=== PATIENT | male | born 1960 | race Caucasian/White ===

== ENCOUNTER → 2017-01-11 | Outpatient (CLI) | payer MEDICARE, BC ==
[~2017-01-11] MED LIST: LIPITOR10 MG PO; LISINOPRIL10 M1 PO; NORCO 10-325 T1 EACH PO; TOPROL XL50 M1 PO
[2017-01-11 11:12] LABS: HEMOGLOBIN 11.1 g/dl (14.0-18.0); MEAN CELL VOLUME 117.2 fl (80.0-94.0); MEAN CORPUSCULAR HGB 43.4 pg (27.0-31.0); MEAN PLATELET VOLUME 9.7 fl (9.6-12.3); PLATELET COUNT AUTOMATED 111 10*3/uL (130-400); RED BLOOD COUNT 2.56 10*6/uL (4.50-5.90); RED CELL DISTRI WIDTH 13.5 % (0-14.5); WHITE BLOOD COUNT 4.2 10*3/uL (4.8-10.8)
[2017-01-11 11:27] LABS: ALBUMIN 2.8 gm/dl (3.1-4.5); ALKALINE PHOSPHATASE 150 U/L (45-117); BILIRUBIN, TOTAL 0.6 mg/dl (0.2-1.0); BUN 7 mg/dl (7-24); CARBON DIOXIDE 25 mmol/L (21-32); CHLORIDE 100 mmol/L (98-107); EST GLOM FILT AFRICAN AMERICAN > 60 ml/min; GLUCOSE 89 mg/dL (65-99); POTASSIUM 4.2 mmol/L (3.5-5.1); SGOT/AST 24 IU/L (3-35); SGPT/ALT 13 U/L (12-78); SODIUM 132 mmol/L (136-145); TOTAL PROTEIN 6.3 gm/dL (6.4-8.2)
[2017-01-11 11:38] LABS: EOSINOPHIL # 0.1 10*3/uL (0-0.4); EOSINOPHILS 2 % (1-4); LYMPHOCYTE # 0.6 10*3/uL (1.3-4.4); MONOCYTE # 0.1 10*3/uL (0.1-1.0); NEUTROPHIL # 3.4 10*3/uL (2.3-7.9); NEUTROPHILS 81 % (47-73); TOTAL CELLS COUNTED 100 #CELLS
[2017-01-11 11:42] LABS: OVALOCYTES FEW; PLATELET SUFFICIENCY LOW (NORMAL)
[2017-01-12 05:11] LABS: TOTAL PROTEIN, SERUM 5.9 g/dL (6.0-8.5)
[2017-01-12 15:09] LABS: A/G RATIO 1.3 (0.7-1.7); ALBUMIN 3.3 g/dL (2.9-4.4); ALPHA-1-GLOBULIN 0.2 g/dL (0.0-0.4); BETA GLOBULIN 0.8 g/dL (0.7-1.3); GAMMA GLOBULIN 1.2 g/dL (0.4-1.8); GLOBULIN, TOTAL 2.6 g/dL (2.2-3.9); M-SPIKE Not Observed g/dL (Not Observed)
== END | disposition home or self-care (01) ==
LOC: LAB 10:33
PROVIDERS: Family Medicine
DX: J44.9 Chronic obstructive pulmonary disease, unspecified (principal); R63.4 Abnormal weight loss; F17.200 Nicotine dependence, unspecified, uncomplicated; I10 Essential (primary) hypertension

== ENCOUNTER → 2017-03-26 | Outpatient (CLI) | payer MEDICARE, BC ==
[2017-03-26 09:47] LABS: HEMATOCRIT 33.7 % (42.0-52.0); HEMOGLOBIN 11.8 g/dl (14.0-18.0); MEAN CELL VOLUME 118.7 fl (80.0-94.0); MEAN CORPUSCULAR HGB 41.5 pg (27.0-31.0); PLATELET COUNT AUTOMATED 240 10*3/uL (130-400); RED BLOOD COUNT 2.84 10*6/uL (4.50-5.90); RED CELL DISTRI WIDTH 11.9 % (0-14.5); WHITE BLOOD COUNT 5.1 10*3/uL (4.8-10.8)
[2017-03-26 10:10] LABS: IRON 77 ug/dL (65-175); TOTAL IRON BINDING CAPACITY 268 ug/dl (250-450)
[2017-03-26 10:43] LABS: PLATELET SUFFICIENCY NORMAL (NORMAL); TOTAL CELLS COUNTED 100 #CELLS
[2017-03-26 11:01] LABS: FERRITIN 351.3 ng/mL (22.0-322.0)
[2017-03-27 19:09] LABS: HLA CLASS 1 ANTIBODY Negative (Negative); IIb/IIIa ANTIBODY Negative (Negative); Ia/IIa ANTIBODY Negative (Negative); Ib/IX ANTIBODY Negative (Negative)
[2017-03-28 19:04] LABS: PLT ASSOCIATED ANTI-la/lla Positive (Negative); PLT ASSOCIATED ANTI-llb/llla Positive (Negative)
== END | disposition home or self-care (01) ==
LOC: LAB 09:13
PROVIDERS: Internal Medicine Hematology & Oncology
DX: D61.818 Other pancytopenia (principal); D75.9 Disease of blood and blood-forming organs, unspecified; D64.9 Anemia, unspecified; D69.59 Other secondary thrombocytopenia

== ENCOUNTER → 2018-11-24 | Outpatient (CLI) | payer MEDICARE, BC ==
[2018-11-24 16:35] LABS: HEMATOCRIT 34.8 % (42.0-52.0); MEAN CELL VOLUME 108.4 fl (80.0-94.0); MEAN CORPUSCULAR HGB 37.4 pg (27.0-31.0); MEAN CORPUSCULAR HGB CONC 34.5 g/dl (33.0-37.0); MEAN PLATELET VOLUME 10.2 fl (9.6-12.3); PLATELET COUNT AUTOMATED 154 10*3/uL (130-400); RED BLOOD COUNT 3.21 10*6/uL (4.50-5.90); WHITE BLOOD COUNT 5.1 10*3/uL (4.8-10.8)
[2018-11-24 17:01] LABS: ALBUMIN 3.1 gm/dl (3.1-4.5); ALKALINE PHOSPHATASE 180 U/L (45-117); BUN 15 mg/dl (7-24); CHLORIDE 101 mmol/L (98-107); CREATININE 0.95 mg/dL (0.70-1.30); POTASSIUM 4.7 mmol/L (3.5-5.1); SGOT/AST 96 IU/L (3-35); SGPT/ALT 65 U/L (12-78); SODIUM 132 mmol/L (136-145); TOTAL PROTEIN 6.7 gm/dL (6.4-8.2)
[2018-11-24 17:08] LABS: BASOPHILS 2 % (0-1); PLATELET SUFFICIENCY NORMAL (NORMAL); TOTAL CELLS COUNTED 100 #CELLS
[2018-11-25 06:10] LABS: HEP B CORE AB TOTAL 006718 Negative (Negative)
[2018-11-25 08:08] LABS: IMMUNOGLOBULIN G, QNT 1111 mg/dL (700-1600); IMMUNOGLOBULIN M, QNT 139 mg/dL (20-172); RHEUMATOID ARTHRITIS FACTOR 41.7 IU/mL (0.0-13.9)
[2018-11-25 13:05] LABS: SJOGREN ANTI-SS-A <0.2 AI (0.0-0.9); SJOREN AB, ANTI-SS-B <0.2 AI (0.0-0.9)
[2018-11-26 21:08] LABS: HCV RT-PCR RFX 795000 IU/mL (.)
[2018-11-28 00:03] LABS: TB1 Ag VALUE 0.06 IU/mL (.)
[2018-11-28 15:07] LABS: ALBUMIN, URINE 8.1 % (.); ALPHA-1-GLOBULIN, URINE 3.1 % (.); ALPHA-2-GLOBULIN, URINE 12.1 % (.); BETA GLOBULIN, URINE 44.6 % (.); GAMMA GLOBULIN, URINE 32.2 % (.); M-SPIKE, % Not Observed % (Not Observed); PROTEIN,TOTAL - URINE RANDOM 10.1 mg/dL (Not Estab.)
[2018-11-29 00:03] LABS: CCP ANTIBODIES IGG/IGA 6 units (0-19)
[2018-11-29 12:07] LABS: HLA-B27 ANTIGEN Negative (.)
== END | disposition home or self-care (01) ==
LOC: LAB 15:41
PROVIDERS: Internal Medicine
DX: M19.042 Primary osteoarthritis, left hand (principal); M19.041 Primary osteoarthritis, right hand; I10 Essential (primary) hypertension; D64.9 Anemia, unspecified; R25.2 Cramp and spasm; R63.4 Abnormal weight loss

== ENCOUNTER → 2019-02-27 | Outpatient (CLI) | payer MEDICARE, BC | END | disposition home or self-care (01) | LOC: RAD 13:59 | DX: M95.0 Acquired deformity of nose (principal) ==

== ENCOUNTER → 2019-03-20 | Outpatient (CLI) | payer MEDICARE, BC | END | disposition home or self-care (01) | LOC: CT 09:45 | DX: J43.9 Emphysema, unspecified (principal); R91.8 Other nonspecific abnormal finding of lung field; R91.1 Solitary pulmonary nodule ==

== ENCOUNTER 2020-01-01 17:03 | Inpatient (IN) | payer MEDICARE, BC ==
[~2020-01-01] VITALS: Ht 187.9 cm; Wt 79.4 kg
[2020-01-01 17:17] VITALS: BP 115/72
[2020-01-01 17:53] LABS: BASO # 0.1 10*3/uL (0.0-0.1); BASO % 0.7 % (0.0-1.0); EOS % 0.4 % (1.0-4.0); HEMATOCRIT 34.6 % (42.0-52.0); LYMPH # 0.6 10*3/uL (1.3-4.4); LYMPH % 8.8 % (27.0-41.0); MEAN CELL VOLUME 106.5 fl (80.0-94.0); MEAN CORPUSCULAR HGB 34.8 pg (27.0-31.0); MEAN CORPUSCULAR HGB CONC 32.7 g/dl (33.0-37.0); MEAN PLATELET VOLUME 10.7 fl (9.6-12.3); MONO # 0.8 10*3/uL (0.1-1.0); NEUT # 5.5 10*3/uL (2.3-7.9); PLATELET COUNT AUTOMATED 205 10*3/uL (130-400); RED BLOOD COUNT 3.25 10*6/uL (4.50-5.90); RED CELL DISTRI WIDTH 13.5 % (0-14.5)
[2020-01-01 18:04] LABS: ACT PARTIAL THROMBO TIME 23.3 SECONDS (20.0-32.1)
[2020-01-01 18:08] LABS: ALBUMIN 2.8 gm/dl (3.1-4.5); ALKALINE PHOSPHATASE 175 U/L (45-117); BUN 11 mg/dl (7-24); CHLORIDE 105 mmol/L (98-107); CREATININE 1.24 mg/dL (0.70-1.30); POTASSIUM 4.3 mmol/L (3.5-5.1); SGOT/AST 31 IU/L (3-35); SGPT/ALT 38 U/L (12-78); SODIUM 137 mmol/L (136-145); TOTAL PROTEIN 6.9 gm/dL (6.4-8.2)
[2020-01-01 18:09] LABS: TROPONIN I 0.044 ng/ml (<0.045)
[2020-01-01 19:21] VITALS: BP 118/79
--- NOTE | 2020-01-01 19:45 | NUR ---
SPOKE WITH KELLY ON FLOOR TO SEE IF SHE WAS READY FOR PATIENT, PER KELLY ALAN IS NOW TAKING PATIENT AND NEEDS 10 MORE MINUTES BEFORE BRINGING PATIENT UP.
[2020-01-01 19:46] VITALS: BP 106/83
--- NOTE | 2020-01-01 20:00 | NUR ---
PATIENT DENIES ANY OPEN WOUNDS AT THIS TIME. SCATTERED HEALING SCABS NOTED TO LEFT LOWER EXTREMITY.
[2020-01-01 20:20] VITALS: BP 111/86
--- NOTE | 2020-01-01 20:20 | NUR ---
A 59, admitted to , under the services of SALVADOR Calderón DO with a diagnosis of LEG EDEMA, ANEMIA, CHF, AFIB. Chief complaint is SOB. Patient arrived via bed from ER. Monitor applied. Initial assessment completed. Vital signs taken and recorded. SALVADOR CALDERÓN DO notified of admission to the unit. Orders received. See assessment for past medical history, medications and allergies. Patient and/or family oriented to unit. [facility] visitation policy reviewed. Clothing/patient valuable form completed. WAQAS CHAN
[2020-01-01] MEDS ORDERED: NORVASC5 MG PO (20:42)
[2020-01-01] MEDS ORDERED: PROAIR HFA8.5 GM INH (20:46)
--- NOTE | 2020-01-01 21:03 | NUR ---
DR. STOLL NOTIFIED OF CRITICAL LACTIC ACID OF 2.2. ALSO NOTIFIED OF COMPLETE HOME MEDICATIONS. NO NEW ORDERS AT THIS TIME.
[2020-01-01 22:00] VITALS: BP 130/84
--- NOTE | 2020-01-01 22:15 | NUR ---
DR. MANZO NOTIFIED OF CONSULT, ORDER FOR CTA RECEIVED.
--- NOTE | 2020-01-01 22:26 | NUR ---
DR. MARIA NOTIFIED OF CONSULT. STATED TO KEEP PT ON CARDIZEM DRIP OVERNIGHT, UNLESS CONVERTS TO SINUS RHYTHM. WILL SEE PT IN THE AM.
[2020-01-02] VITALS (11 sets, daily range): BP systolic 117–136; BP diastolic 54–97
--- NOTE | 2020-01-02 00:30 | NUR ---
PT READING BOOK AT THIS TIME. VOICES NO COMPLAINTS. BOTH IV'S INFUSING WITHOUT DIFFICULTY. CALL LIGHT IN REACH
--- NOTE | 2020-01-02 02:30 | NUR ---
PT LYING IN BED RESTING AT THIS TIME. CALL LIGHT IN REACH
--- NOTE | 2020-01-02 03:46 | NUR ---
PT HAS CHRONIC TREMORS, BUT STATES HE FEELS RESTLESS AT THIS TIME WITH GENERALIZED ACHES ALL OVER. PO ROBAXIN GIVEN PER PRN ORDER FOR MUSCLE ACHES. WILL MONITOR EFFECTIVENESS. CALL LIGHT IN REACH.
--- NOTE | 2020-01-02 04:46 | NUR ---
ROBAXIN APPEARS EFFECTIVE. PT RESTING COMFORTABLY.
[2020-01-02 06:42] LABS: HEMATOCRIT 34.5 % (42.0-52.0); MEAN CELL VOLUME 109.2 fl (80.0-94.0); MEAN CORPUSCULAR HGB 35.4 pg (27.0-31.0); MEAN CORPUSCULAR HGB CONC 32.5 g/dl (33.0-37.0); MEAN PLATELET VOLUME 11.3 fl (9.6-12.3); PLATELET COUNT AUTOMATED 176 10*3/uL (130-400); RED BLOOD COUNT 3.16 10*6/uL (4.50-5.90); RED CELL DISTRI WIDTH 14.1 % (0-14.5); WHITE BLOOD COUNT 4.4 10*3/uL (4.8-10.8)
[2020-01-02 07:16] LABS: ALBUMIN 2.9 gm/dl (3.1-4.5); ALKALINE PHOSPHATASE 158 U/L (45-117); BUN 19 mg/dl (7-24); CHLORIDE 106 mmol/L (98-107); CHOLESTEROL 185 mg/dL (<200); HDL CHOLESTEROL 107 mg/dl (40-60); LDL CHOLESTEROL 69 mg/dL (9-159); POTASSIUM 4.7 mmol/L (3.5-5.1); SGOT/AST 26 IU/L (3-35); SGPT/ALT 36 U/L (12-78); SODIUM 136 mmol/L (136-145); TOTAL PROTEIN 6.8 gm/dL (6.4-8.2); TRIGLYCERIDES 44 mg/dl (<150); VLDL CHOLESTEROL 9 mg/dL (6-40)
[2020-01-02 07:40] LABS: PLATELET SUFFICIENCY NORMAL (NORMAL); ROULEAUX SLIGHT; TOTAL CELLS COUNTED 100 #CELLS
[2020-01-02 07:43] LABS: THYROID STIM HORMONE (HS) 0.703 uIU/ml (0.358-4.75)
--- NOTE | 2020-01-02 08:36 | NUR ---
SPEECH PATHOLOGY Clinical swallowing evaluation completed as per orders to assess for aspiration. Patient was admitted with increased SOB, new onset of A-fib RVR. Further history includes COPD, HTN, hx of amputation, ETOH abuse. Recent CXR showed acute bronchopneumonia in right lower lobe with pleural effusion. He is ordered a regular diet and thin liquid. He was seen this am during breakfast meal. Patient was alert, oriented and denied any chewing or swallowing problems. He was sitting upright in bed feeding himself. Patient displayed good intake and consumed a variety of solid foods and liquids. He displayed no overt oral or pharyngeal difficulty. There were no s/s aspiration with meal. Recommend patient remain on present diet with safe swallow precautions including upright positioning with meals, small bites/sips and taking breaks when needed if SOB. Patient was educated on results and chad. and verbalized understanding. No follow up treatment is warranted at this time. Refer to report in [employer] for further information. Thank you for this referral. ORLANDO MULTANI MSCCC-PIER MASTER
--- NOTE | 2020-01-02 09:00 | NUR ---
Trust Clerk in to talk to patient. Patient states lives at home with alone. There are no steps in the home. Physician: janae Pharmacy: mail Home health services: none Patient's level of ADLs: INDEPENDENT Patient has working utilities: all working DME: home oxygen, portable tanks from [facility] patient Follow-up physician's appointment after d/c: will be made by hospitalist nurse director upon discharge Does patient want to access PORTAL?: no Discharge plan discussed with patient, he states he lives at home alone, he is independent in adls, has a prosthetic right leg and is independent in ambulation, he states he received home oxygen last Wednesday and wears it at 2l/min, he stated he would be returning home upon discharge. discussed with him [facility] and educated him on the services they provide, he declined any home services at this time, case management will follow. ALTAGRACIA BRITT
[2020-01-02 17:07] LABS: ABG BASE EXCESS -3.3 mmol/L (-2.0-2.0); ARTERIAL BLOOD GAS PH 7.447 (7.35-7.45)
--- NOTE | 2020-01-02 19:30 | NUR ---
REPOST OBTAINED. PATIENT CURRENTLY HAS CARDIZEM GTT RUNNING AT 5CC/HR, HR AFIB 90-110'S. CALL LIGHT WITHIN REACH
--- NOTE | 2020-01-02 21:41 | NUR ---
PATIENT MEDICATED WITH ROBAXIN FOR C/O MUSCLE ACHES. WILL MONITOR
[2020-01-03] VITALS (7 sets, daily range): BP systolic 116–136; BP diastolic 78–99
--- NOTE | 2020-01-03 | NUR ---
CARDIZEM GTT FLOWING AT 5CC/HR. HEART MAINTAINS AFIB 90-100'S PER CM.
--- NOTE | 2020-01-03 02:49 | NUR ---
HR AFIB 80-90'S DIPPING INTO 70'S. CARDIZEM GTT DECREASED TO 2.5CC/HR. WILL MONITOR
--- NOTE | 2020-01-03 04:50 | NUR ---
CARDIZEM GTT INCREASED TO 5CC/HR. HR AFIB 90-110'S. BLOOD PRESSURE MAINTAINING AT 116/88 MANUAL
[2020-01-03 06:54] LABS: HEMATOCRIT 31.5 % (42.0-52.0); LYMPH # 0.2 10*3/uL (1.3-4.4); LYMPH % 3.9 % (27.0-41.0); MEAN CELL VOLUME 107.9 fl (80.0-94.0); MEAN CORPUSCULAR HGB 35.6 pg (27.0-31.0); MEAN PLATELET VOLUME 11.1 fl (9.6-12.3); MONO # 0.4 10*3/uL (0.1-1.0); MONO % 8.4 % (3.0-9.0); NEUT # 4.5 10*3/uL (2.3-7.9); NEUT % 87.3 % (47.0-73.0); PLATELET COUNT AUTOMATED 159 10*3/uL (130-400); RED BLOOD COUNT 2.92 10*6/uL (4.50-5.90); WHITE BLOOD COUNT 5.1 10*3/uL (4.8-10.8)
[2020-01-03 07:11] LABS: ALBUMIN 2.8 gm/dl (3.1-4.5); ALKALINE PHOSPHATASE 142 U/L (45-117); BUN 28 mg/dl (7-24); CHLORIDE 104 mmol/L (98-107); CREATININE 1.17 mg/dL (0.70-1.30); POTASSIUM 3.9 mmol/L (3.5-5.1); SGOT/AST 18 IU/L (3-35); SGPT/ALT 31 U/L (12-78); SODIUM 135 mmol/L (136-145); TOTAL PROTEIN 6.5 gm/dL (6.4-8.2)
--- NOTE | 2020-01-03 09:00 | NUR ---
case management visits with patient, he stated he will be transferred to [facility] for lung surgery, case management will follow for any needs
--- NOTE | 2020-01-03 09:30 | NUR ---
SPOKE WITH DR MANZO PER DR HDEZ'S REQUEST . PER DR MANZO PT TO BE TRANSFERRED TO [facility] FOR VAPS PROCEDURE. NOTIFIED DR HDEZ, AWAITING ORDERS.CARDIOLOGY AWARE, DR PHIPPS ROUNDED AND STATED THAT PT TO BE TRANSPORTED WITH [facility] GTT.
--- NOTE | 2020-01-03 09:55 | NUR ---
OT NOTE Occupational therapy order received and OT evaluation attempted. Spoke with nursing prior to entering room. Patient seated EOB with nursing in room awaiting a transfer to another facility for a VAPS procedue. Patient on a cardizem drip and is not appropriate for an OT evaluation at this time due to increased HR per nurse. No further OT indicated at this time. Thank you. Sendy Camarena, OTR/L
--- NOTE | 2020-01-03 10:04 | NUR ---
PT GIVEN ROBAXIN 750MG FOR C/O MUSCLE ACHES.
--- NOTE | 2020-01-03 10:05 | NUR ---
NORCO 10/325 GIVEN TO PATIENT FOR 10/10 PAIN ALL OVER.
--- NOTE | 2020-01-03 10:08 | NUR ---
PHYSICAL THERAPY Physical therapy evalution attempted. Spoke with nursing. Patient sitting EOB awaiting to be transferred to another facility for VAPS procedure. Patient on Cardizem drip and not appropriate for PT services at this time due to increased HR with activity. Discharge PT orders due to transferring to another facility. Thank you. Ashlee Zhang,PT,DPT
[2020-01-03] MEDS ORDERED: METOPROLOL SUCC50 M1 PO (12:27)
--- NOTE | 2020-01-03 13:45 | NUR ---
REPORT CALLED TO NICHOL RAYO AT [facility].
--- NOTE | 2020-01-03 13:55 | NUR ---
Discharge instructions reviewed with patient/family. Patient receptive and verbalizes understanding. Follow-up care arranged. Written instructions given to patient/family. JESSE BENJAMIN
--- NOTE | 2020-01-04 20:56 | NUR ---
NOTIFIED DR. STOLL OF PATIENTS POSITIVE BLOOD CULTURES AND THAT HE WAS TRANSFERRED TO [facility] YESTERDAY. DR. STOLL STATED TO NOTIFY [facility] OF POSITIVE RESULTS AND IF THE PATIENT WAS DISCHARGED THEN WE WILL GET A HOLD OF THE PATIENT
--- NOTE | 2020-01-04 21:35 | NUR ---
SPOKE WITH THE NURSING CARDIAC CATHETERIZATION TECHNICIAN AT [facility] WHO STATED THAT THE PATIENT WAS STILL THERE ON THE 6TH FLOOR. WAS TRANSFERRED TO THE 6TH FLOOR AND SPOKE WITH CARMEN AND WOULD LIKE A COPY OF PATIENTS RESULTS FOR CHART. FAX NUMBER [phone]
--- NOTE | 2020-01-04 21:45 | NUR ---
CALLED BACK TO [facility] FOR REQUEST OF HYDROTHERAPIST TO OBTAIN A RELEASE OF RECORDS FROM [facility] SO WE CAN SEND THE RESULTS TO THEM.
== END 2020-01-03 13:55 | disposition short-term general hospital (02) | DRG 177 ==
LOC: ED 17:03 → 5E 18:39 → EDHOLD 18:39 → 5E 18:39
PROVIDERS: Emergency Medicine; Internal Medicine Critical Care Medicine; Student in an Organized Health Care Education/Training Program; ADMIT Internal Medicine
DX: J69.0 Pneumonitis due to inhalation of food and vomit (principal); J96.21 Acute and chronic respiratory failure with hypoxia; E87.2 Acidosis; E44.0 Moderate protein-calorie malnutrition; I48.91 Unspecified atrial fibrillation; R60.0 Localized edema; R00.0 Tachycardia, unspecified; E78.5 Hyperlipidemia, unspecified; J43.9 Emphysema, unspecified; M19.90 Unspecified osteoarthritis, unspecified site; I50.9 Heart failure, unspecified; D53.9 Nutritional anemia, unspecified; I11.0 Hypertensive heart disease with heart failure; F10.129 Alcohol abuse with intoxication, unspecified; Z82.49 Family history of ischemic heart disease and other diseases of the circulatory system; Z89.511 Acquired absence of right leg below knee; Z82.0 Family history of epilepsy and other diseases of the nervous system; Z79.899 Other long term (current) drug therapy; Z87.891 Personal history of nicotine dependence; Z68.22 Body mass index [BMI] 22.0-22.9, adult

== ENCOUNTER 2021-04-02 16:25 | Inpatient (IN) | payer MEDICARE, BC ==
[~2021-04-02] VITALS: Ht 188 cm; Wt 73.1 kg
[2021-04-02] VITALS (8 sets, daily range): BP systolic 117–146; BP diastolic 56–98
[~2021-04-02 16:25] MED LIST changes: +METOPROLOL SUCC50 M1 PO; +NORVASC5 MG PO; +PROAIR HFA8.5 GM INH
[2021-04-02 16:59] LABS: HEMATOCRIT 40.5 % (42.0-52.0); MEAN CELL VOLUME 116.4 fl (80.0-94.0); MEAN CORPUSCULAR HGB 39.1 pg (27.0-31.0); MEAN CORPUSCULAR HGB CONC 33.6 g/dl (33.0-37.0); MEAN PLATELET VOLUME 10.3 fl (9.6-12.3); PLATELET COUNT AUTOMATED 247 10*3/uL (130-400); RED BLOOD COUNT 3.48 10*6/uL (4.50-5.90); RED CELL DISTRI WIDTH 13.3 % (0-14.5); WHITE BLOOD COUNT 8.4 10*3/uL (4.8-10.8)
[2021-04-02 17:09] LABS: ACT PARTIAL THROMBO TIME 29.3 SECONDS (20.0-32.1)
[2021-04-02 17:17] LABS: ALBUMIN 2.7 gm/dl (3.1-4.5); ALKALINE PHOSPHATASE 169 U/L (45-117); BUN 32 mg/dl (7-24); CHLORIDE 104 mmol/L (98-107); CREATININE 1.16 mg/dL (0.70-1.30); POTASSIUM 4.7 mmol/L (3.5-5.1); SGOT/AST 25 IU/L (3-35); SGPT/ALT 24 U/L (12-78); SODIUM 135 mmol/L (136-145); TOTAL PROTEIN 8.1 gm/dL (6.4-8.2); TROPONIN I 0.021 ng/ml (<0.045)
[2021-04-02 17:36] LABS: ATYPICAL LYMPHS 5 % (0-0); TOTAL CELLS COUNTED 100 #CELLS
[2021-04-02 17:37] LABS: PLATELET SUFFICIENCY NORMAL (NORMAL)
[2021-04-02] MEDS ORDERED: TEMAZEPAM30 MG PO (18:39)
[2021-04-02] MEDS ORDERED: LISINOPRIL10 M1 PO (18:39)
[2021-04-02] MEDS ORDERED: METOPROLOL TART50 M1 PO (18:42)
[2021-04-02 20:59] LABS: BILIRUBIN Negative (Negative); BLOOD Negative (Negative); CLARITY Clear (Clear); COLOR Yellow (Yellow); GLUCOSE Negative (Negative); KETONE Trace (Negative); LEUKO ESTERASE Negative (Negative); NITRITE Negative (Negative)
[2021-04-02 21:07] LABS: URINE AMPHETAMINES > 1000 (1000ng/ml); URINE BARBITURATES < 200 (200ng/ml); URINE BENZODIAZEPINES < 200 (200ng/ml); URINE CANNABINOIDS (THC) > 50 (50ng/ml); URINE COCAINE < 300 (300ng/ml); URINE METHADONE < 300 (300ng/ml); URINE OPIATES > 300 (300ng/ml); URINE PHENCYCLIDINE < 25 (25ng/ml)
[2021-04-02 21:12] LABS: BACTERIA TRACE; EPITHELIAL CELLS 0-2; MUCOUS TRACE; RBC 0-2 rbc/hpf (0-2); WBC 0-2 wbc/hpf (0-5)
[2021-04-03] VITALS: BP 101/77; BP 106/48
[2021-04-03 06:34] LABS: HEMATOCRIT 34.7 % (42.0-52.0); MEAN CELL VOLUME 116.4 fl (80.0-94.0); MEAN CORPUSCULAR HGB 39.3 pg (27.0-31.0); MEAN CORPUSCULAR HGB CONC 33.7 g/dl (33.0-37.0); MEAN PLATELET VOLUME 11.3 fl (9.6-12.3); PLATELET COUNT AUTOMATED 213 10*3/uL (130-400); RED BLOOD COUNT 2.98 10*6/uL (4.50-5.90); RED CELL DISTRI WIDTH 13.3 % (0-14.5); WHITE BLOOD COUNT 5.5 10*3/uL (4.8-10.8)
[2021-04-03 06:42] LABS: ALBUMIN 2.1 gm/dl (3.1-4.5); BUN 26 mg/dl (7-24); CHLORIDE 108 mmol/L (98-107); CHOLESTEROL 127 mg/dL (<200); CREATININE 0.83 mg/dL (0.70-1.30); POTASSIUM 4.4 mmol/L (3.5-5.1); SGOT/AST 18 IU/L (3-35); SGPT/ALT 17 U/L (12-78); SODIUM 137 mmol/L (136-145)
[2021-04-03 06:49] LABS: ALKALINE PHOSPHATASE 125 U/L (45-117); FREE T4 1.08 ng/dl (0.76-1.46); LDL CHOLESTEROL 59 mg/dL (9-159); TOTAL PROTEIN 6.5 gm/dL (6.4-8.2); TRIGLYCERIDES 71 mg/dl (<150)
[2021-04-03 08:00] VITALS: BP 129/50
[2021-04-03 08:38] LABS: BASOPHILS 3 % (0-1); PLATELET SUFFICIENCY NORMAL (NORMAL); TOTAL CELLS COUNTED 100 #CELLS
[2021-04-03 12:00] VITALS: BP 122/89
[2021-04-03 16:00] VITALS: BP 140/88
[2021-04-03 20:00] VITALS: BP 136/90
[2021-04-04] VITALS: BP 108/81
[2021-04-04 06:23] LABS: MEAN CELL VOLUME 117.8 fl (80.0-94.0); MEAN CORPUSCULAR HGB 39.4 pg (27.0-31.0); MEAN CORPUSCULAR HGB CONC 33.4 g/dl (33.0-37.0); MEAN PLATELET VOLUME 11.8 fl (9.6-12.3); PLATELET COUNT AUTOMATED 168 10*3/uL (130-400); RED BLOOD COUNT 2.97 10*6/uL (4.50-5.90); WHITE BLOOD COUNT 5.9 10*3/uL (4.8-10.8)
[2021-04-04 06:40] LABS: BUN 23 mg/dl (7-24); CHLORIDE 110 mmol/L (98-107); POTASSIUM 4.4 mmol/L (3.5-5.1); SODIUM 136 mmol/L (136-145)
[2021-04-04 07:25] LABS: ATYPICAL LYMPHS 12 % (0-0); BURR CELLS MODERATE; TOTAL CELLS COUNTED 100 #CELLS
[2021-04-04 07:26] LABS: MICROCYTOSIS SLIGHT
[2021-04-04 07:27] LABS: PLATELET SUFFICIENCY LOW (NORMAL)
[2021-04-04 08:00] VITALS: BP 98/64
[2021-04-04 11:03] LABS: ABG BASE EXCESS -4.4 mmol/L (-2.0-2.0); ARTERIAL BLOOD GAS PH 7.409 (7.35-7.45); ARTERIAL BLOOD GAS PO2 81.7 (80-90)
[2021-04-04 12:00] VITALS: BP 126/82
[2021-04-04 16:00] VITALS: BP 116/86
[2021-04-04 20:00] VITALS: BP 108/88
[2021-04-05] VITALS: BP 121/91
[2021-04-05 04:39] VITALS: BP 126/94
[2021-04-05 08:00] VITALS: BP 126/92
[2021-04-05 12:00] VITALS: BP 125/94
== END 2021-04-05 12:34 | disposition left against medical advice (07) | DRG 175 ==
LOC: ED 16:25 → EDHOLD 17:50 → 4E 17:50 → EDHOLD 18:15 → 4E 19:28
PROVIDERS: Emergency Medicine; Internal Medicine; Registered Nurse; ADMIT Student in an Organized Health Care Education/Training Program; ATTEND Student in an Organized Health Care Education/Training Program
DX: I26.99 Other pulmonary embolism without acute cor pulmonale (principal); E43 Unspecified severe protein-calorie malnutrition; J96.01 Acute respiratory failure with hypoxia; J96.21 Acute and chronic respiratory failure with hypoxia; J81.0 Acute pulmonary edema; I48.19 Other persistent atrial fibrillation; E87.1 Hypo-osmolality and hyponatremia; E87.2 Acidosis; F10.230 Alcohol dependence with withdrawal, uncomplicated; R65.10 Systemic inflammatory response syndrome (SIRS) of non-infectious origin without acute organ dysfunction; I31.3 Pericardial effusion (noninflammatory); I71.2 Thoracic aortic aneurysm, without rupture; D53.9 Nutritional anemia, unspecified; R73.9 Hyperglycemia, unspecified; I08.0 Rheumatic disorders of both mitral and aortic valves; R74.01 Elevation of levels of liver transaminase levels; I11.0 Hypertensive heart disease with heart failure; I27.20 Pulmonary hypertension, unspecified; J44.9 Chronic obstructive pulmonary disease, unspecified; I50.9 Heart failure, unspecified; E78.5 Hyperlipidemia, unspecified; M19.90 Unspecified osteoarthritis, unspecified site; F17.210 Nicotine dependence, cigarettes, uncomplicated; Z71.6 Tobacco abuse counseling; Z79.01 Long term (current) use of anticoagulants; Z82.49 Family history of ischemic heart disease and other diseases of the circulatory system; Z79.899 Other long term (current) drug therapy; Z89.511 Acquired absence of right leg below knee; Z82.0 Family history of epilepsy and other diseases of the nervous system; Z79.51 Long term (current) use of inhaled steroids; Z79.1 Long term (current) use of non-steroidal anti-inflammatories (NSAID); Z68.20 Body mass index [BMI] 20.0-20.9, adult; Z53.29 Procedure and treatment not carried out because of patient's decision for other reasons

== ENCOUNTER → 2021-06-18 | Outpatient (CLI) | payer MEDICARE, BC ==
[~2021-06-18] MED LIST changes: +METOPROLOL TART50 M1 PO; +TEMAZEPAM30 MG PO
[2021-06-18 16:08] LABS: BASO # 0.1 10*3/uL (0.0-0.1); EOS # 0.1 10*3/uL (0.0-0.4); EOS % 1.8 % (1.0-4.0); HEMATOCRIT 38.5 % (42.0-52.0); LYMPH # 1.2 10*3/uL (1.3-4.4); LYMPH % 25.4 % (27.0-41.0); MEAN CELL VOLUME 106.9 fl (80.0-94.0); MEAN CORPUSCULAR HGB 35.8 pg (27.0-31.0); MEAN CORPUSCULAR HGB CONC 33.5 g/dl (33.0-37.0); MEAN PLATELET VOLUME 10.4 fl (9.6-12.3); MONO # 0.6 10*3/uL (0.1-1.0); MONO % 13.1 % (3.0-9.0); NEUT # 2.8 10*3/uL (2.3-7.9); NEUT % 58.3 % (47.0-73.0); PLATELET COUNT AUTOMATED 253 10*3/uL (130-400); RED CELL DISTRI WIDTH 13.1 % (0-14.5); WHITE BLOOD COUNT 4.9 10*3/uL (4.8-10.8)
[2021-06-18 16:27] LABS: ALBUMIN 3.2 gm/dl (3.1-4.5); BUN 25 mg/dl (7-24); CHLORIDE 103 mmol/L (98-107); CHOLESTEROL 143 mg/dL (<200); CREATININE 1.06 mg/dL (0.70-1.30); LDL CHOLESTEROL 42 mg/dL (9-159); POTASSIUM 4.3 mmol/L (3.5-5.1); SGOT/AST 26 IU/L (3-35); SGPT/ALT 28 U/L (12-78); SODIUM 134 mmol/L (136-145); TOTAL IRON BINDING CAPACITY 328 ug/dl (250-450); TRIGLYCERIDES 83 mg/dl (<150)
[2021-06-18 16:31] LABS: ALKALINE PHOSPHATASE 125 U/L (45-117); IRON 113 ug/dL (65-175); THYROID STIM HORMONE (HS) 0.569 uIU/ml (0.358-4.75); TOTAL PROTEIN 7.6 gm/dL (6.4-8.2)
[2021-06-18 16:41] LABS: FERRITIN 207.3 ng/mL (22.0-322.0)
== END ==
LOC: LAB 15:18
PROVIDERS: ATTEND Family Medicine
DX: I10 Essential (primary) hypertension (principal); I48.0 Paroxysmal atrial fibrillation; R53.83 Other fatigue

== ENCOUNTER → 2021-06-19 | Outpatient (CLI) | payer MEDICARE, BC ==
[2021-06-19 14:33] LABS: BILIRUBIN Negative (Negative); BLOOD Negative (Negative); CLARITY Clear (Clear); COLOR Yellow (Yellow); GLUCOSE Negative (Negative); KETONE Negative (Negative); LEUKO ESTERASE Negative (Negative); NITRITE Negative (Negative); SPECIFIC GRAVITY 1.015 (1.001-1.030); UROBILINOGEN 0.2 E.U./dl (0.0-1.0)
[2021-06-19 14:56] LABS: BACTERIA 2+; EPITHELIAL CELLS 0-2
== END ==
LOC: LAB 13:35
PROVIDERS: ATTEND Family Medicine
DX: I10 Essential (primary) hypertension (principal); I48.0 Paroxysmal atrial fibrillation; R53.83 Other fatigue

== ENCOUNTER → 2021-07-04 | Outpatient (CLI) | payer MEDICARE, BC | END | disposition home or self-care (01) | LOC: US 06-25 13:30 | PROVIDERS: ATTEND Family Medicine | DX: L70.2 Acne varioliformis (principal); R09.89 Other specified symptoms and signs involving the circulatory and respiratory systems ==

== ENCOUNTER → 2021-07-28 | Outpatient (CLI) | payer MEDICARE, BC | LOC: WOUNDCARE 07-25 10:17 | PROVIDERS: ATTEND Nurse Practitioner Family | DX: L97.822 Non-pressure chronic ulcer of other part of left lower leg with fat layer exposed (principal); I87.8 Other specified disorders of veins; I10 Essential (primary) hypertension; I48.91 Unspecified atrial fibrillation; J44.9 Chronic obstructive pulmonary disease, unspecified; M19.90 Unspecified osteoarthritis, unspecified site; F17.290 Nicotine dependence, other tobacco product, uncomplicated; Z71.6 Tobacco abuse counseling; Z89.511 Acquired absence of right leg below knee ==

== ENCOUNTER → 2021-08-13 | Outpatient (CLI) | payer MEDICARE, BC | LOC: WOUNDCARE 09:10 | PROVIDERS: ATTEND Nurse Practitioner Family | DX: L97.822 Non-pressure chronic ulcer of other part of left lower leg with fat layer exposed (principal); I87.8 Other specified disorders of veins; I10 Essential (primary) hypertension; I48.91 Unspecified atrial fibrillation; J44.9 Chronic obstructive pulmonary disease, unspecified; M19.90 Unspecified osteoarthritis, unspecified site; F17.290 Nicotine dependence, other tobacco product, uncomplicated; Z71.6 Tobacco abuse counseling; Z89.511 Acquired absence of right leg below knee ==

== ENCOUNTER → 2021-08-21 | Outpatient (CLI) | payer MEDICARE, BC | LOC: WOUNDCARE 01:29 | PROVIDERS: ATTEND Nurse Practitioner Family | DX: L97.822 Non-pressure chronic ulcer of other part of left lower leg with fat layer exposed (principal); I87.8 Other specified disorders of veins; I10 Essential (primary) hypertension; I48.91 Unspecified atrial fibrillation; J44.9 Chronic obstructive pulmonary disease, unspecified; M19.90 Unspecified osteoarthritis, unspecified site; F17.290 Nicotine dependence, other tobacco product, uncomplicated; Z71.6 Tobacco abuse counseling; Z89.511 Acquired absence of right leg below knee; Z86.711 Personal history of pulmonary embolism; Z79.899 Other long term (current) drug therapy ==

== ENCOUNTER → 2021-08-28 | Outpatient (CLI) | payer MEDICARE, BC | LOC: WOUNDCARE 02:43 | PROVIDERS: ATTEND Nurse Practitioner Family | DX: L97.822 Non-pressure chronic ulcer of other part of left lower leg with fat layer exposed (principal); I87.8 Other specified disorders of veins; I10 Essential (primary) hypertension; I48.91 Unspecified atrial fibrillation; J44.9 Chronic obstructive pulmonary disease, unspecified; M19.90 Unspecified osteoarthritis, unspecified site; F17.290 Nicotine dependence, other tobacco product, uncomplicated; Z71.6 Tobacco abuse counseling; Z89.511 Acquired absence of right leg below knee; Z86.711 Personal history of pulmonary embolism; Z79.899 Other long term (current) drug therapy ==

== ENCOUNTER → 2021-09-05 | Outpatient (CLI) | payer MEDICARE, BC | END | disposition home or self-care (01) | LOC: WOUNDCARE 03:57 | PROVIDERS: ATTEND Nurse Practitioner Family | DX: L97.822 Non-pressure chronic ulcer of other part of left lower leg with fat layer exposed (principal); I48.91 Unspecified atrial fibrillation; I10 Essential (primary) hypertension; E78.5 Hyperlipidemia, unspecified; J44.9 Chronic obstructive pulmonary disease, unspecified; M19.90 Unspecified osteoarthritis, unspecified site; F10.10 Alcohol abuse, uncomplicated; F17.200 Nicotine dependence, unspecified, uncomplicated; Z89.511 Acquired absence of right leg below knee; Z71.6 Tobacco abuse counseling; Z86.711 Personal history of pulmonary embolism ==

== ENCOUNTER → 2021-12-23 | Outpatient (CLI) | payer MEDICARE, BC | END | disposition home or self-care (01) | LOC: WOUNDCARE 01:29 | PROVIDERS: ATTEND Surgery | DX: I87.312 Chronic venous hypertension (idiopathic) with ulcer of left lower extremity (principal); L97.822 Non-pressure chronic ulcer of other part of left lower leg with fat layer exposed; I48.91 Unspecified atrial fibrillation; E78.5 Hyperlipidemia, unspecified; J44.9 Chronic obstructive pulmonary disease, unspecified; M19.90 Unspecified osteoarthritis, unspecified site; F10.10 Alcohol abuse, uncomplicated; F17.200 Nicotine dependence, unspecified, uncomplicated; Z89.511 Acquired absence of right leg below knee; Z71.6 Tobacco abuse counseling; Z86.711 Personal history of pulmonary embolism ==

== ENCOUNTER → 2022-01-01 | Outpatient (CLI) | payer MEDICARE, BC | END | disposition home or self-care (01) | LOC: WOUNDCARE 01:06 | PROVIDERS: ATTEND Nurse Practitioner Family | DX: I87.312 Chronic venous hypertension (idiopathic) with ulcer of left lower extremity (principal); L97.822 Non-pressure chronic ulcer of other part of left lower leg with fat layer exposed; I48.91 Unspecified atrial fibrillation; J44.9 Chronic obstructive pulmonary disease, unspecified; E78.5 Hyperlipidemia, unspecified; M19.90 Unspecified osteoarthritis, unspecified site; F17.200 Nicotine dependence, unspecified, uncomplicated; Z71.6 Tobacco abuse counseling; Z86.711 Personal history of pulmonary embolism ==

== ENCOUNTER → 2022-01-08 | Outpatient (CLI) | payer MEDICARE, BC | END | disposition home or self-care (01) | LOC: WOUNDCARE 02:25 | PROVIDERS: ATTEND Nurse Practitioner Family | DX: I87.312 Chronic venous hypertension (idiopathic) with ulcer of left lower extremity (principal); L97.822 Non-pressure chronic ulcer of other part of left lower leg with fat layer exposed; E78.5 Hyperlipidemia, unspecified; I48.91 Unspecified atrial fibrillation; J44.9 Chronic obstructive pulmonary disease, unspecified; M19.90 Unspecified osteoarthritis, unspecified site; F17.200 Nicotine dependence, unspecified, uncomplicated; Z71.6 Tobacco abuse counseling; Z89.511 Acquired absence of right leg below knee; Z86.711 Personal history of pulmonary embolism ==

== ENCOUNTER → 2022-01-16 | Outpatient (CLI) | payer MEDICARE, BC | END | disposition home or self-care (01) | LOC: WOUNDCARE 01:57 | PROVIDERS: ATTEND Nurse Practitioner Family | DX: I87.312 Chronic venous hypertension (idiopathic) with ulcer of left lower extremity (principal); L97.822 Non-pressure chronic ulcer of other part of left lower leg with fat layer exposed; I48.91 Unspecified atrial fibrillation; E78.5 Hyperlipidemia, unspecified; J44.9 Chronic obstructive pulmonary disease, unspecified; M19.90 Unspecified osteoarthritis, unspecified site; F17.200 Nicotine dependence, unspecified, uncomplicated; Z71.6 Tobacco abuse counseling; Z86.711 Personal history of pulmonary embolism ==

== ENCOUNTER → 2022-01-22 | Outpatient (CLI) | payer MEDICARE, BC ==
[~2022-01-22] MED LIST changes: +ATORVASTATIN CA20 M1 PO; +ELIQUIS5 M1 PO; +FUROSEMIDE20 M1 PO; +SULFAMETHOXAZOLE-TMP; +TAMSULOSIN HCL0.4 MG PO
== END | disposition home or self-care (01) ==
LOC: WOUNDCARE 07:07
PROVIDERS: ATTEND Nurse Practitioner Family
DX: I87.312 Chronic venous hypertension (idiopathic) with ulcer of left lower extremity (principal); L97.822 Non-pressure chronic ulcer of other part of left lower leg with fat layer exposed; I48.91 Unspecified atrial fibrillation; E78.5 Hyperlipidemia, unspecified; J44.9 Chronic obstructive pulmonary disease, unspecified; M19.90 Unspecified osteoarthritis, unspecified site; F17.200 Nicotine dependence, unspecified, uncomplicated; Z89.511 Acquired absence of right leg below knee; Z71.6 Tobacco abuse counseling; Z86.711 Personal history of pulmonary embolism

== ENCOUNTER → 2022-01-29 | Outpatient (CLI) | payer MEDICARE, BC | END | disposition home or self-care (01) | LOC: WOUNDCARE 09:22 | PROVIDERS: ATTEND Nurse Practitioner Family | DX: I87.312 Chronic venous hypertension (idiopathic) with ulcer of left lower extremity (principal); L97.822 Non-pressure chronic ulcer of other part of left lower leg with fat layer exposed; L84 Corns and callosities; I48.91 Unspecified atrial fibrillation; E78.5 Hyperlipidemia, unspecified; J44.9 Chronic obstructive pulmonary disease, unspecified; M19.90 Unspecified osteoarthritis, unspecified site; F17.200 Nicotine dependence, unspecified, uncomplicated; Z86.711 Personal history of pulmonary embolism; Z89.511 Acquired absence of right leg below knee; Z71.6 Tobacco abuse counseling ==

== ENCOUNTER → 2022-02-02 | Day surgery (SDC) | payer MEDICARE, BC ==
[2022-01-29 13:50] VITALS: BP 111/75
[2022-01-29 16:19] LABS: HEMATOCRIT 34.2 % (42.0-52.0); MEAN CORPUSCULAR HGB 39.7 pg (27.0-31.0); MEAN CORPUSCULAR HGB CONC 34.8 g/dl (33.0-37.0); MEAN PLATELET VOLUME 10.2 fl (9.6-12.3); PLATELET COUNT AUTOMATED 138 10*3/uL (130-400); RED CELL DISTRI WIDTH 15.6 % (0-14.5); WHITE BLOOD COUNT 4.7 10*3/uL (4.8-10.8)
[2022-01-29 16:25] LABS: MANUAL DIFF REFLEX YES
[2022-01-29 16:31] LABS: CREATININE 2.77 mg/dL (0.70-1.30); POTASSIUM 4.8 mmol/L (3.5-5.1)
[2022-01-29 16:48] LABS: BASOPHILS 1 % (0-1); PLATELET SUFFICIENCY NORMAL (NORMAL); TOTAL CELLS COUNTED 100 #CELLS
[~2022-02-02] VITALS: Ht 187.9 cm; Wt 74.8 kg
[~2022-02-02] MED LIST changes: +COLACE100 MG PO; +ONDANSETRON HYDR4 M1 PO; +PERCOCET 5-3251 EACH PO
[2022-02-02 11:05] VITALS: BP 126/85
[2022-02-02 15:13] VITALS: BP 113/66
[2022-02-02 15:25] VITALS: BP 117/77
[2022-02-02 15:45] VITALS: BP 131/84
[2022-02-02 15:56] VITALS: BP 122/81
[2022-02-02 16:14] VITALS: BP 122/77
== END | disposition home or self-care (01) ==
LOC: SDC 01-29 13:15
PROVIDERS: ATTEND Surgery
DX: K40.30 Unilateral inguinal hernia, with obstruction, without gangrene, not specified as recurrent (principal); I11.0 Hypertensive heart disease with heart failure; I50.9 Heart failure, unspecified; J43.9 Emphysema, unspecified; I48.91 Unspecified atrial fibrillation; F17.210 Nicotine dependence, cigarettes, uncomplicated; Z79.899 Other long term (current) drug therapy

== ENCOUNTER → 2022-02-05 | Outpatient (CLI) | payer MEDICARE, BC | END | disposition home or self-care (01) | LOC: WOUNDCARE 01:01 | PROVIDERS: ATTEND Nurse Practitioner Family | DX: I87.312 Chronic venous hypertension (idiopathic) with ulcer of left lower extremity (principal); L97.822 Non-pressure chronic ulcer of other part of left lower leg with fat layer exposed; I48.91 Unspecified atrial fibrillation; E78.5 Hyperlipidemia, unspecified; J44.9 Chronic obstructive pulmonary disease, unspecified; M19.90 Unspecified osteoarthritis, unspecified site; F17.200 Nicotine dependence, unspecified, uncomplicated; Z86.711 Personal history of pulmonary embolism; Z71.6 Tobacco abuse counseling ==

== ENCOUNTER → 2022-02-11 | Outpatient (CLI) | payer MEDICARE, BC | END | disposition home or self-care (01) | LOC: WOUNDCARE 04:48 | PROVIDERS: ATTEND Surgery | DX: I87.312 Chronic venous hypertension (idiopathic) with ulcer of left lower extremity (principal); L97.822 Non-pressure chronic ulcer of other part of left lower leg with fat layer exposed; I48.91 Unspecified atrial fibrillation; E78.5 Hyperlipidemia, unspecified; J44.9 Chronic obstructive pulmonary disease, unspecified; M19.90 Unspecified osteoarthritis, unspecified site; F17.200 Nicotine dependence, unspecified, uncomplicated; Z86.711 Personal history of pulmonary embolism; Z71.6 Tobacco abuse counseling; Z89.511 Acquired absence of right leg below knee ==

== ENCOUNTER → 2022-02-18 | Outpatient (CLI) | payer MEDICARE, BC | END | disposition home or self-care (01) | LOC: WOUNDCARE 02:14 | PROVIDERS: ATTEND Nurse Practitioner Family | DX: I87.312 Chronic venous hypertension (idiopathic) with ulcer of left lower extremity (principal); L97.822 Non-pressure chronic ulcer of other part of left lower leg with fat layer exposed; I48.91 Unspecified atrial fibrillation; E78.5 Hyperlipidemia, unspecified; J44.9 Chronic obstructive pulmonary disease, unspecified; M19.90 Unspecified osteoarthritis, unspecified site; F17.200 Nicotine dependence, unspecified, uncomplicated; Z89.511 Acquired absence of right leg below knee; Z86.711 Personal history of pulmonary embolism; Z71.6 Tobacco abuse counseling ==

== ENCOUNTER → 2022-02-26 | Outpatient (CLI) | payer MEDICARE, BC | LOC: WOUNDCARE 02-25 18:13 | PROVIDERS: ATTEND Nurse Practitioner Family | DX: Z53.21 Procedure and treatment not carried out due to patient leaving prior to being seen by health care provider (principal) ==

== ENCOUNTER → 2022-07-27 | Outpatient (CLI) | payer MEDICARE, BC ==
[2022-07-27 16:28] LABS: BUN 18 mg/dl (9-23); CHLORIDE 97 mmol/L (98-107); POTASSIUM 4.8 mmol/L (3.4-5.1)
== END | disposition home or self-care (01) ==
LOC: LAB 15:17
PROVIDERS: ATTEND Internal Medicine
DX: J44.1 Chronic obstructive pulmonary disease with (acute) exacerbation (principal)

== ENCOUNTER → 2023-05-26 | Day surgery (SDC) | payer MEDICARE, BC ==
[2023-05-24 13:27] VITALS: BP 160/98
[2023-05-24 14:30] LABS: HEMATOCRIT 38.5 % (42.0-52.0); MANUAL DIFF REFLEX YES; MEAN CELL VOLUME 114.6 fl (80.0-94.0); PLATELET COUNT AUTOMATED 220 10*3/uL (130-400); RED BLOOD COUNT 3.36 10*6/uL (4.50-5.90); RED CELL DISTRI WIDTH 11.9 % (0-14.5); WHITE BLOOD COUNT 7.3 10*3/uL (4.8-10.8)
[2023-05-24 14:46] LABS: BUN 26 mg/dl (9-23); CHLORIDE 103 mmol/L (98-107); POTASSIUM 4.6 mmol/L (3.4-5.1)
[2023-05-24 15:27] LABS: BASOPHILS 2 % (0-1); PLATELET SUFFICIENCY NORMAL (NORMAL); TOTAL CELLS COUNTED 100 #CELLS
[2023-05-24 15:29] LABS: ROULEAUX SLIGHT
[~2023-05-26] VITALS: Ht 187.9 cm; Wt 68.0 kg
[~2023-05-26] MED LIST changes: +ZANAFLEX4 M1 PO
[2023-05-26 08:46] VITALS: BP 164/104
[2023-05-26 10:20] VITALS: BP 146/86
[2023-05-26 10:34] VITALS: BP 154/89
[2023-05-26 10:45] VITALS: BP 126/84
[2023-05-26 10:59] VITALS: BP 136/83
[2023-05-26 11:18] VITALS: BP 154/90
== END | disposition home or self-care (01) ==
LOC: SDC 05-24 13:15
PROVIDERS: ATTEND Surgery
DX: K64.8 Other hemorrhoids (principal); C21.0 Malignant neoplasm of anus, unspecified; I10 Essential (primary) hypertension; E78.00 Pure hypercholesterolemia, unspecified; J44.9 Chronic obstructive pulmonary disease, unspecified; F17.210 Nicotine dependence, cigarettes, uncomplicated; Z86.16 Personal history of COVID-19; Z79.899 Other long term (current) drug therapy; Z98.890 Other specified postprocedural states

== ENCOUNTER → 2023-07-19 | Outpatient (CLI) | payer MEDICARE, BC ==
[2023-07-19 15:00] LABS: HEMATOCRIT 38.7 % (42.0-52.0); MEAN CELL VOLUME 110.9 fl (80.0-94.0); MEAN CORPUSCULAR HGB 36.4 pg (27.0-31.0); MEAN CORPUSCULAR HGB CONC 32.8 g/dl (33.0-37.0); MEAN PLATELET VOLUME 9.6 fl (9.6-12.3); PLATELET COUNT AUTOMATED 219 10*3/uL (130-400); RED BLOOD COUNT 3.49 10*6/uL (4.50-5.90); RED CELL DISTRI WIDTH 12.7 % (0-14.5); WHITE BLOOD COUNT 5.2 10*3/uL (4.8-10.8)
[2023-07-19 15:03] LABS: MANUAL DIFF REFLEX YES
[2023-07-19 15:28] LABS: TOTAL CELLS COUNTED 100 #CELLS
[2023-07-19 15:29] LABS: BURR CELLS FEW; PLATELET SUFFICIENCY NORMAL (NORMAL); TARGET CELLS FEW
[2023-07-19 15:30] LABS: ALKALINE PHOSPHATASE 139 U/L (46-116); BUN 18 mg/dl (9-23); CHLORIDE 101 mmol/L (98-107); SGPT/ALT 16 U/L (5-49)
== END | disposition home or self-care (01) ==
LOC: LAB 14:39
PROVIDERS: ATTEND Internal Medicine Gastroenterology
DX: Z86.010 Personal history of colon polyps (principal)

== ENCOUNTER → 2023-07-27 | Outpatient (CLI) | payer MEDICARE, BC ==
[2023-07-27 15:04] LABS: HEMATOCRIT 40.7 % (42.0-52.0); MEAN CORPUSCULAR HGB 36.4 pg (27.0-31.0); MEAN CORPUSCULAR HGB CONC 31.9 g/dl (33.0-37.0); MEAN PLATELET VOLUME 10.2 fl (9.6-12.3); PLATELET COUNT AUTOMATED 230 10*3/uL (130-400); RED BLOOD COUNT 3.57 10*6/uL (4.50-5.90); RED CELL DISTRI WIDTH 12.4 % (0-14.5); WHITE BLOOD COUNT 5.4 10*3/uL (4.8-10.8)
[2023-07-27 15:12] LABS: MANUAL DIFF REFLEX YES
[2023-07-27 15:30] LABS: ALKALINE PHOSPHATASE 145 U/L (46-116); BUN 16 mg/dl (9-23); CHLORIDE 104 mmol/L (98-107); POTASSIUM 4.3 mmol/L (3.4-5.1); SGPT/ALT 12 U/L (5-49); TOTAL PROTEIN 7.4 gm/dL (6.0-8.0)
[2023-07-27 15:51] LABS: BASOPHILS 2 % (0-1); OVALOCYTES FEW; TARGET CELLS FEW; TOTAL CELLS COUNTED 100 #CELLS
[2023-07-27 15:52] LABS: BURR CELLS FEW; PLATELET SUFFICIENCY NORMAL (NORMAL); ROULEAUX SLIGHT
== END | disposition home or self-care (01) ==
LOC: LAB 14:18
PROVIDERS: ATTEND Internal Medicine Hematology & Oncology
DX: C21.0 Malignant neoplasm of anus, unspecified (principal)

== ENCOUNTER → 2023-09-11 | Outpatient (CLI) | payer MEDICARE, BC ==
[2023-09-11 11:20] LABS: BASO % 0.4 % (0.0-1.0); EOS # 0.3 10*3/uL (0.0-0.4); LYMPH # 0.4 10*3/uL (1.3-4.4); LYMPH % 14.2 % (27.0-41.0); MEAN CELL VOLUME 105.6 fl (80.0-94.0); MEAN CORPUSCULAR HGB 35.4 pg (27.0-31.0); MEAN CORPUSCULAR HGB CONC 33.5 g/dl (33.0-37.0); MEAN PLATELET VOLUME 10.8 fl (9.6-12.3); MONO # 0.6 10*3/uL (0.1-1.0); MONO % 19.5 % (3.0-9.0); NEUT # 1.5 10*3/uL (2.3-7.9); NEUT % 54.5 % (47.0-73.0); PLATELET COUNT AUTOMATED 73 10*3/uL (130-400); RED BLOOD COUNT 3.22 10*6/uL (4.50-5.90); RED CELL DISTRI WIDTH 12.4 % (0-14.5); WHITE BLOOD COUNT 2.8 10*3/uL (4.8-10.8)
== END | disposition home or self-care (01) ==
LOC: LAB 00:24
PROVIDERS: ATTEND Radiology Radiation Oncology
DX: C21.0 Malignant neoplasm of anus, unspecified (principal)

== ENCOUNTER → 2024-08-01 | Outpatient (CLI) | payer MEDICARE, BC ==
[2024-08-01 13:18] LABS: HEMATOCRIT 34.3 % (42.0-52.0); MANUAL DIFF REFLEX YES; MEAN CELL VOLUME 114.7 fl (80.0-94.0); MEAN CORPUSCULAR HGB 38.8 pg (27.0-31.0); MEAN CORPUSCULAR HGB CONC 33.8 g/dl (33.0-37.0); MEAN PLATELET VOLUME 9.3 fl (9.6-12.3); PLATELET COUNT AUTOMATED 195 10*3/uL (130-400); RED BLOOD COUNT 2.99 10*6/uL (4.50-5.90); RED CELL DISTRI WIDTH 12.8 % (0-14.5); WHITE BLOOD COUNT 3.2 10*3/uL (4.8-10.8)
[2024-08-01 13:41] LABS: ATYPICAL LYMPHS 1 % (0-0); BURR CELLS FEW; OVALOCYTES FEW; PLATELET SUFFICIENCY NORMAL (NORMAL); POLYCHROMASIA SLIGHT; TOTAL CELLS COUNTED 100 #CELLS
[2024-08-01 13:49] LABS: FREE T4 1.11 ng/dl (0.89-1.76); POTASSIUM 3.7 mmol/L (3.4-5.1); TOTAL PROTEIN 7.4 gm/dL (6.0-8.0)
[2024-08-01 14:08] LABS: VITAMIN D, 25-HYDROXY 24.5 ng/mL (30-100)
== END | disposition home or self-care (01) ==
LOC: LAB 03:32 → CARD 12:00
PROVIDERS: ATTEND Internal Medicine
DX: Z12.5 Encounter for screening for malignant neoplasm of prostate (principal); R06.02 Shortness of breath; I10 Essential (primary) hypertension; E78.2 Mixed hyperlipidemia; F17.210 Nicotine dependence, cigarettes, uncomplicated; R53.83 Other fatigue; E53.9 Vitamin B deficiency, unspecified; R97.20 Elevated prostate specific antigen [PSA]

== ENCOUNTER → 2024-11-07 | Outpatient (CLI) | payer MEDICARE, BC ==
[2024-11-07 16:19] LABS: HEMATOCRIT 31.7 % (42.0-52.0); MEAN CELL VOLUME 108.9 fl (80.0-94.0); MEAN CORPUSCULAR HGB 36.4 pg (27.0-31.0); MEAN CORPUSCULAR HGB CONC 33.4 g/dl (33.0-37.0); MEAN PLATELET VOLUME 9.8 fl (9.6-12.3); PLATELET COUNT AUTOMATED 189 10*3/uL (130-400); RED BLOOD COUNT 2.91 10*6/uL (4.50-5.90); RED CELL DISTRI WIDTH 14.5 % (0-14.5); WHITE BLOOD COUNT 3.8 10*3/uL (4.8-10.8)
[2024-11-07 16:50] LABS: FREE T4 1.1 ng/dl (0.89-1.76); TOTAL PROTEIN 7.7 gm/dL (6.0-8.0)
[2024-11-07 16:51] LABS: MANUAL DIFF REFLEX YES
[2024-11-07 16:52] LABS: VITAMIN D, 25-HYDROXY 40.7 ng/mL (30-100)
[2024-11-07 16:59] LABS: ACT PARTIAL THROMBO TIME 29.5 SECONDS (20.0-32.1)
[2024-11-07 17:15] LABS: BASOPHILS 1 % (0-1); PLATELET SUFFICIENCY NORMAL (NORMAL); TOTAL CELLS COUNTED 100 #CELLS
[2024-11-07 17:20] LABS: BURR CELLS FEW
== END | disposition home or self-care (01) ==
LOC: LAB 15:48
PROVIDERS: Orthopaedic Surgery Sports Medicine; ATTEND Internal Medicine
DX: I10 Essential (primary) hypertension (principal); I48.21 Permanent atrial fibrillation; E78.2 Mixed hyperlipidemia; R53.83 Other fatigue; E53.9 Vitamin B deficiency, unspecified; E55.9 Vitamin D deficiency, unspecified